=== PATIENT | female | born 1985 | race Caucasian/White ===

== ENCOUNTER 2025-02-27 10:46 | Emergency (ER) | payer BC, SELFPAY ==
--- NOTE | ~2025-02-27 | XR_ITS ---
EXAM/ PROCEDURE: XR knee LT min 4V - 02/27/2025 11:26 CDT HISTORY: 39 years old Female with fell onto knee 2 months ago COMPARISON: None available TECHNIQUE: 5 view(s) FINDINGS/ IMPRESSION: There are no fractures or dislocations.Joint spaces are within normal limits Reviewed, dictated and finalized at location A.
[2025-02-27 10:58] VITALS: BP 144/89; PULSE 76; RESP 20; TEMP 36.4; O2SAT 98
--- NOTE | 2025-02-27 11:11 | ED_ITS ---
HPI - Extremity Injury (Lower) General Chief Complaint: Extremity Injury, Lower Stated Complaint: injury to left knee Time Seen by Provider: 02/27/25 11:12 Source: patient, RN notes reviewed and old records reviewed Mode of arrival: ambulatory Limitations: no limitations History of Present Illness HPI Narrative: 39 year old female who presents to express care with complaints of falling onto her left knee after slipping on wet floor landing onto her anterior knee while attending her son's wrestling meet. Patient reports that initially she had discomfort to the anterior knee below patella. Patient reports that it was getting better but has increased discomfort to her left knee posterior aspect of her left knee for the past 2 days with some radiation of discomfort around to lateral knee, Patient reports that she has not noted any recent swelling did not have any bruising initially. Patient reports that she has been taking Ibuprofen for her pain. MD complaint: knee injury (2 months ago fell onto knee increase pain for the past 2 days) Onset (ago): month(s) (initially 2 months ago) Injury: Left: knee (initially fell onto anterior left knee 2 months ago) Type of Injury: blunt Severity scale (1-10): 7 Exacerbating factors: weight bearing and movement Treatments prior to arrival: NSAIDS Related Data Home Medications ?Medication ?Instructions ?Recorded ?Confirmed ?Last Taken ?Type No Home Medications 02/27/25 02/27/25 Unknown History Allergies Allergy/AdvReac Type Severity Reaction Status Date / Time No Known Allergies Allergy Verified 02/27/25 11:03 Review of Systems Review of Systems: CONSTITUTIONAL: Denies fever, chills, or sweats. EYES: Denies visual changes, redness, or discharge. ENT: Denies rhinorrhea, congestion, sore throat, or otalgia. CARDIOVASCULAR: Denies chest pain, palpitations, or edema. RESPIRATORY: Denies cough or dyspnea. GASTROINTESTINAL: Denies abdominal pain, nausea, vomiting, or diarrhea. GENITOURINARY: Denies dysuria or hematuria. SKIN: Denies rash or itching. MUSCULOSKELETAL: Denies back pain, positive for left lateral knee pain and posterior knee pain,, or myalgia. NEUROLOGIC: Denies headache, numbness, or weakness. PSYCHIATRIC: Denies anxiety or depression. All systems reviewed & are unremarkable except as noted in HPI and below PMFSH Past Medical History Medical History (Updated 02/28/25 @ 09:37 by Hilary Hairston NP) Benign breast cyst in female excision Surgical History Surgical History (Updated 02/28/25 @ 09:22 by Hilary Hairston NP) History of tonsillectomy Social History Social History (Updated 02/28/25 @ 09:23 by Hilary Hairston NP) Smoking status: Never smoker Alcohol intake: unknown Substance use: unknown Living arrangements: with family Gender identity (if verbalized by the patient): Female Comments At time of signature, agree with nursing past medical, surgical, social and family history. There is no relevant family history pertinent to the presenting complaint Exam Narrative: GENERAL: Well-appearing, well-nourished, and in no acute distress. HEAD: Normocephalic, atraumatic. EYES: PERRLA and EOMI. ENT: Nares clear, no rhinorrhea or epistaxis. Mucous membranes moist. NECK: Supple.no lymphadenopathy CHEST: Clear to auscultation. No respiratory distress. SAO2 99 % on room air HEART: Regular rate and rhythm. No murmur heard. Normal peripheral pulses. ABDOMEN: Soft, nontender, nondistended, normal active bowel sounds. EXTREMITIES: Normal range of motion. No edema noted Patient has palpable discomfort to the posterior aspect of her left knee which radiates some to the lateral anterior knee. Patient is able to bend the knee has strong pedal pulse, reports no clicking sensation or instability of her left knee, Patient reports that ambulation and some movement increase her pain.Initial injury 2 months ago denies any recent injury. SKIN: Warm, dry, no rash. NEURO: No focal deficits. Alert and oriented x3. Course Course Emergency Course: Patient is aware of diagnosis, understands and agrees to treatment plan.? Anticipatory guidance given.? Patient agrees to follow-up as directed and is aware of reasons to seek care at the emergency department. Portions of this record may have been created with voice recognition software Level of Care: Express Care Visit Vital Signs Vital signs: Vital Signs Temperature 36.4 C 02/27/25 10:58 Pulse Rate 76 02/27/25 10:58 Respiratory Rate 20 02/27/25 10:58 Blood Pressure 144/89 H 02/27/25 10:58 Pulse Oximetry 98 02/27/25 10:58 Oxygen Delivery Room Air 02/27/25 10:58 Temperature 36.4 C 02/27/25 10:58 Pulse Rate 76 02/27/25 10:58 Respiratory Rate 20 02/27/25 10:58 Blood Pressure 144/89 H 02/27/25 10:58 Pulse Oximetry 98 02/27/25 10:58 Oxygen Delivery Room Air 02/27/25 10:58 Reviewed MDM - Extremity Injury (Lower) Differential Diagnosis Differential diagnosis: Likely acute internal derangement of knee and other (knee strain,bakers cyst, pain to left knee) Medical Records Attestation: I reviewed the patient's medical records. Imaging Data Attestation: I personally reviewed and interpreted this imaging study as follows: My impression: no fractures or dislocations left knee, joint spaces within normal limits Radiologist's impression: [address] [place] [address] XRay Report Signed Patient: Megan Astudillo : 1985 MR#: [id number] Age: 39 Acct:[id number] Loc: [facility] ADM Date: 02/27/25Attending Dr: Ordering Physician: Hilary Hairston APRN Date of Service: 02/27/25 Procedure(s): XR knee LT min 4V Accession Number(s): [id number] cc: Hilary Hairston APRN; UNKNOWN,DOCTOR~ EXAM/ PROCEDURE: XR knee LT min 4V - 02/27/2025 11:26 CDT HISTORY: 39 years old Female with fell onto knee 2 months ago COMPARISON: None available TECHNIQUE: 5 view(s) FINDINGS/ IMPRESSION: There are no fractures or dislocations.Joint spaces are within normal limits Reviewed, dictated and finalized at location A. Please be advised this is a medical document. It is intended for [id number] communication. It is written in medical language and may contain unfamiliar abbreviations or verbiage. Medical documents are intended to carry relevant information, facts as evident, and the clinical opinion of the practitioner at the time of the encounter. This report may have been done utilizing a voice recognition system. Attempts have been made to correct errors. However, there may be uncorrected grammatical, spelling, and recognition errors present. The file time of this note does not necessarily represent the time of service. Dictated By: Anna Ozuna MD 02/27/25 1147 Signed By: <Electronically signed by Anna Ozuna MD in OV> Critical Care Time Critical Care Time Critical Care Time: No Discharge Plan Discharge Clinical Impression: Knee pain, left Qualifiers: Chronicity: unspecified Qualified Code(s): M25.562 - Pain in left knee Patient Disposition: Home Condition: Stable Instructions: Knee Pain (ED) Additional Instructions: Orthopedic splint to left knee such as neoprene sleeve as directed for comfort for the next 5-7 days Tylenol for lesser pain Ibuprofen regularly for the next 2-3 days for the inflammation 600 mg 3 times daily for the next 2-3 days with food Follow-up with orthopedic surgeon as recommended if continued problems Dr Coulter is personal banking officer today [phone] Follow-up with PCP if further problems or concerns Ice to the area 20-30 minutes 4-6 times a day Elevate above heart If your symptoms persist, change or worsen significantly before you can contact your personal physician then please, without delay, go to the emergency department for further evaluation. Follow-up with PCP in 7-10 days or sooner if needed Follow up with PCP soon in regards to your blood pressure which is elevated above threshold for referral. Blood pressure above 120/80 may indicate pre- hypertension. 144/89 Patient Language: Gibraltarian Prescriptions: No Action No Home Medications Follow-up/Referrals: UNKNOWN,DOCTOR [Primary Care Provider] - Time of Disposition: 12:15 Quality Faby Coma Scale Eyes: Open Verbal: Oriented and Alert Motor: Follows Commands Faby Coma Total Score: 15
--- OUTSIDE RECORDS SUMMARY | 2025-02-27 11:35 | XMS_ITS | Clinical Summary ---
Author Organization [facility] [place] Address [address] [place] [address] Phone Care Team Providers Care [employer] Name Role Phone Unavailable Primary Care Provider Unavailabl e Allergies No known active allergies Medications Levonorgestrel (MIRENA) 20 mcg/24 hour (5 years) IUD A ctive Active Problems Patient Care Coordination No te Formatting of this note migh t be different from the original. Primary Care: No primary provider on file. Referring Provider: Vivi Arshad MD [facility] [place] [address] Other: Problem Noted Date Diagnosed Date Lump or mass in breast 09/16/2013 H/O lumpectomy Family History Medical History Relation Name Comments Diabetes Maternal Grandfather Cancer Other matgreatgrandma skin cancer not sure age Relation Name Status Comments Maternal Grandfather Other matgreatgrandma Social History Tobacco Use Types Packs/Day Years Used Date Smoking Tobacco: Never Smokeless Tobacco: Never Alcohol Use Standard Drinks/Week Comments Yes 0 (1 standard drink = 0.6 oz pur e alcohol) rarely Comments No Sex and Gender Information Value Date Recorded Sex Assigned at Not on file Legal Sex Female 11:27 AM CDT Gender Identity Not on file Sexual Orientation Not on file Occupation Industry Job Start Date Job End Date Not on file Not on file Not on file Not on file Last Filed Vital Signs Vital Sign Reading Time Taken Comments Blood Pressure 114/71 09/16/2013 10:59 AM CDT Pulse 73 09/16/2013 10:59 AM CDT Temperature - - Respiratory Rate - - Oxygen Saturation - - Inhaled Oxygen Concentration - - Weight 76.7 kg (169 lb) 09/16/2013 10:59 AM CDT Height 149.9 cm (4' 11 ) 09/16/2013 10:59 AM CDT Body Mass Index 34.13 09/16/2013 10:59 AM CDT Plan of Treatment Health Maintenance Due Date Last Done Comments DTAP/TDAP/TD VACCINES (1 - Tdap) 2004 HEPATITIS B VACCINES (1 of 3 - 19+ 3-dose series) 2004 HPV/Cotest (21-29) 2006 CERVICAL CANCER SCREENING 2015 HPV/Cotest (30-65) 2015 PAP SMEAR 2015 INFLUENZA VACCINE (#1) 2024 HPV VACCINES Aged Out No longer eligi ble based on patient's age to complete this topic Insurance [facility] BLUE ACCESS/TRUE BLUE PPO
--- OUTSIDE RECORDS SUMMARY | 2025-02-27 11:36 | XMS_ITS | Clinical Summary ---
Author Organization [facility] Address [address] [place] [address] Phone Care Team Providers Care Game Moderator Name Role Phone Provider, None Primary Care Provider Unavailabl e Allergies No known active allergies Medications Vit-Fe Fumarate-FA ( MULTIVITAMIN) 27-0.8 MG Tablet Take 1 Tab by mouth nightly. Active ferrous sulfate 325 (65 FE) MG TabletIndicatio ns:Iron Deficiency Take 325 mg by mouth daily. Indications: Iron Deficiency Active ibuprofen (MOTRIN) 600 MG Tablet Take 1 Tab by mouth every 6 hours as needed for Pain (for temperature greater than 100.4 F). 60 Tab 0 6 Active HYDROcodone-eladia taminophen (NORCO) 5-325 MG Tablet Take 1-2 Tabs by mouth every 4 hours as needed for Pain. 30 Tab 0 6 Active Family History Medical History Relation Name Comments Diabetes Maternal Grandfather Relation Name Status Comments Maternal Grandfather Social History Tobacco Use Types Packs/Day Years Used Date Smoking Tobacco: Former Cigarettes 0.3 2 Smokeless Tobacco: Never Alcohol Use Standard Drinks/Week Comments No 0 (1 standard drink = 0.6 oz pur e alcohol) Sexually Active Control Partners Comments Yes Male Comments No Sex and Gender Information Value Date Recorded Sex Assigned at Not on file Legal Sex Female 7:53 PM CDT Gender Identity Not on file Sexual Orientation Not on file Last Filed Vital Signs Vital Sign Reading Time Taken Comments Blood Pressure 126/78 01/19/2016 3:00 PM MECHANICAL TECHNICIAN Pulse 71 01/19/2016 3:00 PM MECHANICAL TECHNICIAN Temperature 35.9 C (96.7 F) 01/19/2016 3:00 PM MECHANICAL TECHNICIAN Respiratory Rate 20 01/19/2016 3:00 PM MECHANICAL TECHNICIAN Oxygen Saturation 98% 01/19/2016 3:00 PM MECHANICAL TECHNICIAN Inhaled Oxygen Concentration - - Weight 90.3 kg (199 lb) 01/18/2016 5:00 AM MECHANICAL TECHNICIAN Height 149.9 cm (4' 11 ) 01/18/2016 5:00 AM MECHANICAL TECHNICIAN Body Mass Index 40.19 01/18/2016 5:00 AM MECHANICAL TECHNICIAN Plan of Treatment Not on file Insurance Advance Directives * Full Code (Latest Code Status on File) Date Activated Date Inactivated Comments 01/18/2016 5:56 AM 01/19/2016 8:54 PM Full Code: FULL ARREST: Attempt Resuscitation/CPR and use intubation and mechanical ventilation as indicated. PRE-ARREST: Use all measures to stabilize patient. Care Teams Game Moderator Relationship Specialty Start Date End Date Provider, None [place] PCP - General 01/18/16
== END 2025-02-27 12:20 | disposition home or self-care (01) ==
PROVIDERS: Emergency Provider Registered Nurse
DX: M25.562 Pain in left knee (principal)
CPT/HCPCS: 73564; 99203; G0463